=== PATIENT | female | born 1975 | race Two or more races ===

== ENCOUNTER 2018-05-22 10:43 | Observation (INO) | payer MEDICAID | END 2018-05-22 12:30 | disposition home or self-care (01) | DRG 566 | LOC: LDRP 10:43 | PROVIDERS: ADMIT Obstetrics & Gynecology; ATTEND Obstetrics & Gynecology | DX: O24.419 Gestational diabetes mellitus in pregnancy, unspecified control (principal); O09.523 Supervision of elderly multigravida, third trimester; Z3A.30 30 weeks gestation of pregnancy | CPT/HCPCS: 59025; 76818; 81002; 82948; G0378 ==

== ENCOUNTER 2018-05-27 14:21 | Observation (INO) | payer MEDICAID ==
[2018-05-27] MEDS ORDERED: GLYB5TAB8 PO (14:57)
== END 2018-05-27 15:17 | disposition home or self-care (01) | DRG 566 ==
LOC: LDRP 14:21
PROVIDERS: ADMIT Obstetrics & Gynecology; ATTEND Obstetrics & Gynecology
DX: O24.419 Gestational diabetes mellitus in pregnancy, unspecified control (principal); O09.523 Supervision of elderly multigravida, third trimester; Z3A.31 31 weeks gestation of pregnancy
CPT/HCPCS: 59025; 76818; 81002; 82948; G0378

== ENCOUNTER 2018-05-30 08:50 | Observation (INO) | payer MEDICAID ==
[~2018-05-30 08:50] MED LIST: GLYB5TAB8 PO
== END 2018-05-30 10:00 | disposition home or self-care (01) | DRG 566 ==
LOC: LDRP 08:50
PROVIDERS: ADMIT Obstetrics & Gynecology; ATTEND Obstetrics & Gynecology
DX: O26.893 Other specified pregnancy related conditions, third trimester (principal); N89.8 Other specified noninflammatory disorders of vagina; O09.523 Supervision of elderly multigravida, third trimester; Z3A.31 31 weeks gestation of pregnancy
CPT/HCPCS: 59025; 81002; 82948; 82962; G0378

== ENCOUNTER 2018-06-03 15:04 | Observation (INO) | payer MEDICAID | END 2018-06-03 17:00 | disposition home or self-care (01) | DRG 566 | LOC: LDRP 15:04 | PROVIDERS: ADMIT Specialist; ATTEND Specialist | DX: O24.419 Gestational diabetes mellitus in pregnancy, unspecified control (principal); O09.523 Supervision of elderly multigravida, third trimester; Z3A.32 32 weeks gestation of pregnancy | CPT/HCPCS: 59025; 76818; 81002; 82962; G0378 ==

== ENCOUNTER 2018-06-06 09:25 | Observation (INO) | payer MEDICAID | END 2018-06-06 10:15 | disposition home or self-care (01) | DRG 566 | LOC: LDRP 09:25 | PROVIDERS: ADMIT Obstetrics & Gynecology; ATTEND Obstetrics & Gynecology | DX: O26.853 Spotting complicating pregnancy, third trimester (principal); O24.419 Gestational diabetes mellitus in pregnancy, unspecified control; O09.523 Supervision of elderly multigravida, third trimester; Z3A.32 32 weeks gestation of pregnancy | CPT/HCPCS: 59025; 76818; 81002; 82948; 82962; G0378 ==

== ENCOUNTER 2018-06-09 11:57 | Observation (INO) | payer MEDICAID | END 2018-06-09 14:28 | disposition home or self-care (01) | DRG 566 | LOC: LDRP 11:57 | PROVIDERS: ADMIT Obstetrics & Gynecology; ATTEND Obstetrics & Gynecology | DX: O24.419 Gestational diabetes mellitus in pregnancy, unspecified control (principal); O09.523 Supervision of elderly multigravida, third trimester; Z3A.33 33 weeks gestation of pregnancy | CPT/HCPCS: 59025; 76818; 81002; 82948; 82962; G0378 ==

== ENCOUNTER 2018-06-12 11:10 | Observation (INO) | payer MEDICAID | END 2018-06-12 12:32 | disposition home or self-care (01) | DRG 566 | LOC: LDRP 11:10 | PROVIDERS: ADMIT Obstetrics & Gynecology; ATTEND Obstetrics & Gynecology | DX: O24.419 Gestational diabetes mellitus in pregnancy, unspecified control (principal); O60.03 Preterm labor without delivery, third trimester; O09.523 Supervision of elderly multigravida, third trimester; Z3A.33 33 weeks gestation of pregnancy | CPT/HCPCS: 59025; 81002; G0378 ==

== ENCOUNTER 2018-06-16 10:10 | Observation (INO) | payer MEDICAID | END 2018-06-16 12:15 | disposition home or self-care (01) | DRG 566 | LOC: LDRP 10:10 | PROVIDERS: ADMIT Obstetrics & Gynecology; ATTEND Obstetrics & Gynecology | DX: O24.419 Gestational diabetes mellitus in pregnancy, unspecified control (principal); O09.523 Supervision of elderly multigravida, third trimester; Z3A.34 34 weeks gestation of pregnancy | CPT/HCPCS: 59025; 76818; 81002; 82948; 82962; G0378 ==

== ENCOUNTER 2018-06-19 10:25 | Observation (INO) | payer MEDICAID ==
[~2018-06-19] VITALS: Ht 157.5 cm; Wt 92.5 kg
[2018-06-19] MEDS ORDERED: PREN-96 PO (11:35)
== END 2018-06-19 12:00 | disposition home or self-care (01) | DRG 566 ==
LOC: LDRP 10:25
PROVIDERS: ADMIT Obstetrics & Gynecology; ATTEND Obstetrics & Gynecology
DX: O26.893 Other specified pregnancy related conditions, third trimester (principal); O09.523 Supervision of elderly multigravida, third trimester; R10.2 Pelvic and perineal pain; Z3A.34 34 weeks gestation of pregnancy
CPT/HCPCS: 59025; 76818; 81002; 82948; 82962; G0378

== ENCOUNTER 2018-06-23 11:49 | Observation (INO) | payer MEDICAID ==
[~2018-06-23 11:49] MED LIST changes: +PREN-96 PO
== END 2018-06-23 13:35 | disposition home or self-care (01) | DRG 566 ==
LOC: LDRP 11:49
PROVIDERS: ADMIT Specialist; ATTEND Specialist
DX: O24.419 Gestational diabetes mellitus in pregnancy, unspecified control (principal); O26.893 Other specified pregnancy related conditions, third trimester; O09.523 Supervision of elderly multigravida, third trimester; R10.2 Pelvic and perineal pain; Z3A.35 35 weeks gestation of pregnancy
CPT/HCPCS: 59025; 76818; 81002; 82948; 82962; G0378

== ENCOUNTER 2018-06-26 14:35 | Observation (INO) | payer MEDICAID | END 2018-06-26 15:35 | disposition home or self-care (01) | DRG 566 | LOC: LDRP 14:35 | PROVIDERS: ADMIT Specialist; ATTEND Specialist | DX: O24.419 Gestational diabetes mellitus in pregnancy, unspecified control (principal); Z3A.35 35 weeks gestation of pregnancy | CPT/HCPCS: 59025; 76818; 81002; 82948; G0378 ==

== ENCOUNTER 2018-06-30 11:16 | Observation (INO) | payer MEDICAID | END 2018-06-30 13:45 | disposition home or self-care (01) | DRG 566 | LOC: LDRP 11:16 | PROVIDERS: ADMIT Specialist; ATTEND Specialist | DX: O24.419 Gestational diabetes mellitus in pregnancy, unspecified control (principal); O09.523 Supervision of elderly multigravida, third trimester; Z3A.36 36 weeks gestation of pregnancy | CPT/HCPCS: 59025; 76818; 81002; 82962; G0378 ==

== ENCOUNTER 2018-07-03 10:36 | Observation (INO) | payer MEDICAID | END 2018-07-03 12:00 | disposition home or self-care (01) | DRG 566 | LOC: LDRP 10:36 | PROVIDERS: ADMIT Obstetrics & Gynecology; ATTEND Obstetrics & Gynecology | DX: O24.410 Gestational diabetes mellitus in pregnancy, diet controlled (principal); Z3A.36 36 weeks gestation of pregnancy | CPT/HCPCS: 59025; 76818; 81002; 82948; 82962; G0378 ==

== ENCOUNTER 2018-07-07 11:09 | Observation (INO) | payer MEDICAID | END 2018-07-07 12:30 | disposition home or self-care (01) | DRG 566 | LOC: LDRP 11:09 | PROVIDERS: ADMIT Specialist; ATTEND Specialist | DX: O24.419 Gestational diabetes mellitus in pregnancy, unspecified control (principal); O09.523 Supervision of elderly multigravida, third trimester; Z3A.37 37 weeks gestation of pregnancy | CPT/HCPCS: 59025; 76818; 81002; 82948; G0378 ==

== ENCOUNTER 2018-07-14 10:50 | Observation (INO) | payer MEDICAID ==
[~2018-07-14] VITALS: Ht 30.5 cm; Wt 0.5 kg
[~2018-07-14 10:50] MED LIST changes: -GLYB5TAB8 PO
[2018-07-14] MEDS ORDERED: LACTATED RINGER'S 1,000 ML IV ONE (11:45)
== END 2018-07-14 13:35 | disposition home or self-care (01) | DRG 566 ==
LOC: LDRP 10:50
PROVIDERS: ADMIT Obstetrics & Gynecology; ATTEND Obstetrics & Gynecology
DX: O24.419 Gestational diabetes mellitus in pregnancy, unspecified control (principal); O09.523 Supervision of elderly multigravida, third trimester; O62.9 Abnormality of forces of labor, unspecified; Z3A.38 38 weeks gestation of pregnancy
CPT/HCPCS: 59025; 76818; 81002; 82948; 82962; G0378

== ENCOUNTER 2018-07-18 09:10 | Observation (INO) | payer MEDICAID | END 2018-07-18 10:40 | disposition home or self-care (01) | DRG 566 | LOC: LDRP 09:10 | PROVIDERS: ADMIT Obstetrics & Gynecology; ATTEND Obstetrics & Gynecology | DX: O24.419 Gestational diabetes mellitus in pregnancy, unspecified control (principal); Z3A.38 38 weeks gestation of pregnancy | CPT/HCPCS: 76818; 82962; G0378; 59025; 81002; 82948 ==

== ENCOUNTER 2018-07-22 01:29 | Inpatient (IN) | payer MEDICAID | END 2018-07-25 10:00 | disposition home or self-care (01) | LOC: LDRP 01:29 | PROC: 10D00Z1 Extraction of Products of Conception, Low, Open Approach (ICD-10-PCS; principal; 2018-07-22 07:18) | PROC: 0UB70ZZ Excision of Bilateral Fallopian Tubes, Open Approach (ICD-10-PCS; 2018-07-22 07:18) | DX: O26.899 Other specified pregnancy related conditions, unspecified trimester (principal); S33.4XXS Traumatic rupture of symphysis pubis, sequela; Z30.2 Encounter for sterilization; Z37.0 Single live birth ==